=== PATIENT | male | born 1935 | race Caucasian/White ===

== ENCOUNTER 2017-03-30 10:35 | Emergency (ER) | payer OTHER ==
[~2017-03-30] VITALS: Ht 190.5 cm; Wt 80.0 kg
[~2017-03-30 10:35] MED LIST: ATOR40TA16 PO; LEVE500 PO; LORA-474 PO; MEMA28CA PO; METO25TA6 PO; PLAV75TA29 PO; RIVA13.3 T-DERMAL; SENN1TAB PO; SERT-132 PO; SINE25TA PO
[2017-03-30 10:37] VITALS: BP 155/79; PULSE 96; RESP 20; TEMP 98.1; O2SAT 97
--- NOTE | 2017-03-30 11:05 | PD ---
HPI Chief Complaint: Cardiac Complaint Time Seen by Provider: 10:54 Travel History International Travel<30 days: No Contact w/Intl Traveler<30days: No History of Present Illness HPI 81-year-old male complains of chest pain and nausea. Patient has history of dementia. Patient was reported to having chest pain this morning. EMS was called. Patient was transported to ED for evaluation. Patient denies any chest pain now. Patient denies any headache. Patient denies any coughing congestion. Patient denies any abdominal pain. Patient states that he had nausea earlier but not now. Patient denies any vomiting or diarrhea. Patient denies any dysuria or frequency. Patient denies any fever chills. Patient denies any back pain. Patient has history of dementia, Alzheimer's disease, hypertension, hyperlipidemia, hearing impaired, CAD, status post abdominal aortic aneurysm repair. PFSH Past Medical History Hx Anticoagulant Therapy: Yes AAA: Yes Alzheimer's Disease: Yes Arthritis: No Asthma: No Autoimmune Disease: No Blood Disorders: No Anxiety: No Depression: No Heart Rhythm Problems: Yes Cancer: No Cardiac Catheterization: Yes Cardiovascular Problems: Yes High Cholesterol: Yes Chemotherapy: No Chest Pain: No Congestive Heart Failure: No COPD: No Cerebrovascular Accident: No Coronary Artery Disease: Yes Dementia: Yes Diabetes: No Diminished Hearing: Yes (bilateral hearing aids ) Endocrine: No Gastrointestinal Disorders: Yes (cholecetomy) GERD: No Glaucoma: No Genitourinary: No Headaches: Yes Hepatitis: No Hiatal Hernia: No Hypertension: Yes Immune Disorder: No Implanted Vascular Access Dvce: Yes Kidney Stones: No Musculoskeletal: No Neurologic: Yes (dementia) Psychiatric: No Reproductive: No Respiratory: No Immunizations Current: Yes Migraines: No Myocardial Infarction: No Radiation Therapy: No Renal Failure: No Seizures: No Sickle Cell Disease: No Sleep Apnea: No Thyroid Disease: No Ulcer: No Past Surgical History Abdominal Aneurysm Repair: Yes (REPAIRED ) Abdominal Surgery: Yes AICD: No Appendectomy: No Arteriovenous Shunt: No Body Medical Devices: AAA GRAFT Cardiac Surgery: Yes (PACEMAKER INSERTION ) Cholecystectomy: No Coronary Artery Bypass Graft: Yes (2008 x 4 vessels) Ear Surgery: No Eye Surgery: No Genitourinary Surgery: No Gynecologic Surgery: No Insulin Pump: No Joint Replacement: No Neurologic Surgery: No Oral Surgery: No Pacemaker: Yes Thoracic Surgery: Yes (AAA STENT) Other Surgery: Yes (Open heart surgery) Social History Alcohol Use: No (RARELY) Tobacco Use: No (QUIT) Substance Use: No Allergies-Medications (Allergen,Severity, Reaction): Coded Allergies: No Known Allergies (Verified , 08/08/16) Reported Meds & Prescriptions Reported Meds & Active Scripts Active Ativan (Lorazepam) 1 Mg Tab 1 Mg PO DAILY PRN Keppra (Levetiracetam) 500 Mg Tab 500 Mg PO Q12HR Reported Metoprolol Succinate ER 24 HR (Metoprolol Succinate) 50 Mg Tab 50 Mg PO DAILY Sinemet (Carbidopa-Levodopa) 25-100 Mg Tab 1 Tab PO TID Atorvastatin (Atorvastatin Calcium) 40 Mg Tab 40 Mg PO DAILY Namenda Xr (Memantine) 28 Mg Caper 28 Mg PO DAILY Sertraline (Sertraline HCl) 50 Mg Tab 50 Mg PO DAILY Exelon Patch (Rivastigmine) 13.3 mg/24 hr Patch 1 Patch T-DERMAL DAILY Plavix (Clopidogrel Bisulfate) 75 Mg Tab 75 Mg PO DAILY Review of Systems General / Constitutional: No: Fever Eyes: No: Visual changes HENT: No: Headaches Cardiovascular: Positive: Chest Pain or Discomfort Respiratory: No: Shortness of Breath Gastrointestinal: Positive: Nausea, No: Abdominal Pain Genitourinary: No: Dysuria Musculoskeletal: No: Pain Skin: No Rash Neurologic: No: Weakness Psychiatric: No: Depression Endocrine: No: Polydipsia Hematologic/Lymphatic: No: Easy Bruising Physical Exam Narrative GENERAL: Well-nourished, well-developed patient. SKIN: Focused skin assessment warm/dry. HEAD: Normocephalic. EYES: No scleral icterus. No injection or drainage. NECK: Supple, trachea midline. No JVD or lymphadenopathy. CARDIOVASCULAR: Regular rate and rhythm without murmurs, gallops, or rubs. RESPIRATORY: Breath sounds equal bilaterally. No accessory muscle use. GASTROINTESTINAL: Abdomen soft, non-tender, nondistended. MUSCULOSKELETAL: No cyanosis, or edema. BACK: Nontender without obvious deformity. No CVA tenderness. Neurologic exam normal. Data Data Last Documented VS Vital Signs Date Time Temp Pulse Resp B/P Pulse Ox O2 Delivery O2 Flow Rate FiO2 03/30/17 12:43 79 18 145/69 96 03/30/17 10:41 Room Air 03/30/17 10:37 98.1 Orders Electrocardiogram (03/30/17 10:59) Complete Blood Count With Diff (03/30/17 10:59) Comprehensive Metabolic Panel (03/30/17 10:59) Creatine Kinase (Cpk) (03/30/17 10:59) Troponin I (03/30/17 10:59) B-Type Natriuretic Peptide (03/30/17 10:59) Prothrombin Time / Inr (Pt) (03/30/17 10:59) Act Partial Throm Time (Ptt) (03/30/17 10:59) Urinalysis - C+S If Indicated (03/30/17 10:59) Chest, Single Ap (03/30/17 10:59) Iv Access Insert/Monitor (03/30/17 10:59) Ecg Monitoring (03/30/17 10:59) Oximetry (03/30/17 10:59) Sodium Chlor 0.9% 1000 Ml Inj (Ns 1000 M (03/30/17 14:00) Ondansetron Inj (Zofran Inj) (03/30/17 14:00) Ns (Bolus) Inj (03/30/17 14:30) Labs Laboratory Tests Test 03/30/17 03/30/17 11:00 12:30 White Blood Count 7.1 TH/MM3 Red Blood Count 4.90 MIL/MM3 Hemoglobin 13.5 GM/DL Hematocrit 40.7 % Mean Corpuscular Volume 83.0 FL Mean Corpuscular Hemoglobin 27.6 PG Mean Corpuscular Hemoglobin 33.3 % Concent Red Cell Distribution Width 15.3 % Platelet Count 104 TH/MM3 Mean Platelet Volume 10.4 FL Neutrophils (%) (Auto) 46.2 % Lymphocytes (%) (Auto) 32.0 % Monocytes (%) (Auto) 21.1 % Eosinophils (%) (Auto) 0.4 % Basophils (%) (Auto) 0.3 % Neutrophils # (Auto) 3.3 TH/MM3 Lymphocytes # (Auto) 2.3 TH/MM3 Monocytes # (Auto) 1.5 TH/MM3 Eosinophils # (Auto) 0.0 TH/MM3 Basophils # (Auto) 0.0 TH/MM3 CBC Comment DIFF FINAL Differential Comment Prothrombin Time 12.6 SEC Prothromb Time International 1.1 RATIO Ratio Activated Partial 28.0 SEC Thromboplast Time Sodium Level 141 MEQ/L Potassium Level 3.8 MEQ/L Chloride Level 104 MEQ/L Carbon Dioxide Level 27.6 MEQ/L Anion Gap 9 MEQ/L Blood Urea Nitrogen 17 MG/DL Creatinine 0.95 MG/DL Estimat Glomerular Filtration 76 ML/MIN Rate Random Glucose 80 MG/DL Calcium Level 9.3 MG/DL Total Bilirubin 0.6 MG/DL Aspartate Amino Transf 16 U/L (AST/SGOT) Alanine Aminotransferase 14 U/L (ALT/SGPT) Alkaline Phosphatase 76 U/L Total Creatine Kinase 88 U/L Troponin I LESS THAN 0.02 NG/ML B-Type Natriuretic Peptide 52 PG/ML Total Protein 7.4 GM/DL Albumin 3.6 GM/DL Urine Color YELLOW Urine Turbidity HAZY Urine pH 7.5 Urine Specific [place] 1.025 Urine Protein TRACE mg/dL Urine Glucose (UA) NEG mg/dL Urine Ketones NEG mg/dL Urine Occult Blood NEG Urine Nitrite NEG Urine Bilirubin NEG Urine Urobilinogen 2.0 MG/DL Urine Leukocyte Esterase NEG Urine RBC 1 /hpf Urine WBC 2 /hpf Urine Calcium Oxalate Crystals RARE /hpf Urine Amorphous Sediment OCC Urine Mucus FEW /lpf Microscopic Urinalysis Comment CULT NOT INDICATED MDM Medical Decision Making Medical Screen Exam Complete: Yes Emergency Medical Condition: Yes Interpretation(s) 1422 PM. Last Impressions Chest X-Ray 03/30/17 1059 Signed Impressions: Service Date/Time: Thursday, March 30, 2017 11:21 - CONCLUSION: No acute disease. William Camara MD 1422 PM. CBC within normal limit. Platelet 104. CMP within normal limit. Cardiac enzymes are normal. UA is negative. Differential Diagnosis Differential diagnosis including musculoskeletal, angina, KS, PE, pneumothorax. Narrative Course 81-year-old male with chest pain and nausea earlier today. History of Alzheimer 's and dementia. Patient denies any chest pain or nausea now. Normal saline solution 500 cc IV bolus. Zofran 4 mg IV. Diagnosis Primary Impression: Atypical chest pain Additional Impression: Gastroenteritis Patient Instructions: General Instructions Additional Instructions: Zofran as needed. Follow-up with personal physician. Return if worse. Return immediately if increasing chest pain short as of breath, persistent vomiting. Med/Other Pt SpecificInfo: Prescription(s) given Scripts Ondansetron Odt (Zofran Odt)4 Mg Tab4 Mg SL Q6HR PRN (Nausea/Vomiting) #10 TAB Prov:Estuardo Quiroz MD 03/30/17 Disposition: 01 DISCHARGE HOME Condition: Stable Estuardo Quiroz MD March 30, 2017 11:05
[2017-03-30 11:15] LABS: AUTOMATED NEUTROPHIL # 3.3 TH/MM3 (1.8-7.7); BASOPHIL % 0.3 % (0.0-2.0); EOSINOPHIL % 0.4 % (0.0-4.0); HEMATOCRIT 40.7 % (39.0-51.0); HEMO FLAGS DIFF FINAL; LYMPHOCYTE # 2.3 TH/MM3 (1.0-4.8); MEAN CORPUSCULAR HEMOGLOBIN 27.6 PG (27.0-34.0); MEAN CORPUSCULAR HGB CONC 33.3 % (32.0-36.0); MONO % 21.1 % (0.0-8.0); NEUT % 46.2 % (16.0-70.0); PLATELET COUNT 104 TH/MM3 (150-450); RED CELL DISTRIBUTION WIDTH 15.3 % (11.6-17.2); WHITE BLOOD COUNT 7.1 TH/MM3 (4.0-11.0)
[2017-03-30 11:28] LABS: INTERNATIONAL NORMALIZED RATIO 1.1 RATIO; PROTHROMBIN TIME - PATIENT 12.6 SEC (9.8-11.6)
[2017-03-30] MEDS ORDERED: METO50TA11 PO (11:29)
[2017-03-30 11:31] LABS: ANION GAP 9 MEQ/L (5-15); AST (GOT) 16 U/L (15-37); BICARBONATE 27.6 MEQ/L (21.0-32.0); BLOOD UREA NITROGEN 17 MG/DL (7-18); CHLORIDE 104 MEQ/L (98-107); GLOMERULAR FILTRATION RATE 76 ML/MIN (>89); POTASSIUM 3.8 MEQ/L (3.5-5.1); SODIUM (NA) 141 MEQ/L (136-145)
[2017-03-30 11:36] LABS: ALKALINE PHOSPHATASE 76 U/L (45-117); ALT (GPT) 14 U/L (12-78); TOTAL BILIRUBIN ADULT 0.6 MG/DL (0.2-1.0)
[2017-03-30 11:37] LABS: CREATINE KINASE 88 U/L (39-308)
--- NOTE | 2017-03-30 12:17 | RADRPT ---
EXAM DATE/TIME: 03/30/2017 11:21 [facility] COMPARISON: CHEST SINGLE AP, October 14, 2016, 5:19. INDICATIONS : Chest pain. MEDICAL HISTORY : None. SURGICAL HISTORY : Pacemaker. ENCOUNTER: Initial ACUITY: 1 day PAIN SCORE: 0/10 LOCATION: Bilateral chest FINDINGS: A single view of the chest demonstrates the lungs to be symmetrically aerated without evidence of mas s, infiltrate or effusion. The cardiomediastinal contours are unremarkable. Osseous structures are intact. Sternotomy wires and left-sided pacing device is again noted. CONCLUSION: No acute disease. William Camara MD on March 30, 2017 at 12:15 Board Certified Radiologist. This report was verified electronically.
[2017-03-30 12:43] VITALS: BP 145/69; PULSE 79; RESP 18; O2SAT 96
[2017-03-30 13:01] LABS: BLOOD, URINE NEG (NEG); CALCIUM OXALATE CRYSTALS,URINE RARE /hpf; GLUCOSE,URINE NEG (NEG); KETONE, URINE NEG (NEG); MUCUS URINE FEW /lpf (OCC); NITRITE,URINE NEG (NEG); PH, URINE 7.5 (5.0-8.5); URINE COLOR YELLOW (YELLW/STRAW)
[2017-03-30 13:02] LABS: COMMENT (UR) CULT NOT INDICATED; CULTURE IF INDICATED CULT NOT INDICATED
[2017-03-30] MEDS ORDERED: SODIUM CHLOR 0.9% 1000 ML INJ 1,000 ML IV SCH (14:00)
[2017-03-30] MEDS ORDERED: ONDANSETRON HCL 4 MG/2 ML VIAL IV PUSH ONE (14:00)
[2017-03-30] MEDS ORDERED: ZOFR4TAB3 SL (14:30)
[2017-03-30] MEDS ORDERED: SODIUM CHLORID 0.9% 500 ML INJ 500 ML IV ONE (14:30)
--- NOTE | 2017-03-30 17:01 | EKG ---
Date Performed: 03/30/2017 Time Performed: 10:41:24 PTAGE: 81 years EKG: ELECTRONIC AV PACEMAKER LEFT BUNDLE BRANCH BLOCK Compared to previous tracing, the patient is now AV paced ABNORMAL ECG PREVIOUS TRACING : 10/11/2016 14.22 DOCTOR: Lidia Armenta Interpretating Date/Time 03/30/2017 17:00:46
== END 2017-03-30 16:19 | disposition home or self-care (01) ==
LOC: NEPE 10:35
DX: R07.89 Other chest pain (principal); K52.9 Noninfective gastroenteritis and colitis, unspecified; R94.31 Abnormal electrocardiogram [ECG] [EKG]; I10 Essential (primary) hypertension; E78.5 Hyperlipidemia, unspecified; G30.9 Alzheimer's disease, unspecified; F02.80 Dementia in other diseases classified elsewhere, unspecified severity, without behavioral disturbance, psychotic disturbance, mood disturbance, and anxiety; H91.93 Unspecified hearing loss, bilateral; Z79.01 Long term (current) use of anticoagulants; Z86.79 Personal history of other diseases of the circulatory system; Z87.19 Personal history of other diseases of the digestive system
CPT/HCPCS: 71010; 80053; 81001; 82550; 83880; 84484; 85025; 85610; 85730; 93005; 96374; 99285; J2405; J7040

== ENCOUNTER 2017-11-17 11:42 | Emergency (ER) | payer OTHER, MEDICAID ==
[~2017-11-17] VITALS: Ht 182.9 cm; Wt 80.0 kg
[~2017-11-17 11:42] MED LIST changes: +METO1TAB9 PO; -METO25TA6 PO; -SENN1TAB PO; +ZOFR4TAB3 SL
[2017-11-17 12:13] VITALS: BP 152/77; PULSE 60; RESP 14; TEMP 97.5; O2SAT 98
--- NOTE | 2017-11-17 12:44 | PD ---
HPI Chief Complaint: Altered Mental Status Time Seen by Provider: 12:38 Travel History International Travel<30 days: No Contact w/Intl Traveler<30days: No Traveled to known affect area: No History of Present Illness HPI 82-year-old male presents to the emergency department via EMS for evaluation of possible chest pain. Apparently, the patient complained of chest pain this morning. The patient as a past medical history of dementia, Alzheimer's disease , hypertension, hyperlipidemia, hearing impaired, CAD, status post abdominal aortic aneurysm repair. Apparently, the patient is more confused than normal. He denies any complaints to me. No chest pain. No headache. No fevers or chills. No shortness of breath. No abdominal pain. No nausea, vomiting, diarrhea. The patient is awake, but disoriented. He does follow commands. Patient is a poor historian. The patient is evaluated ambulatory no family is available at this time. Moderate severity. No exacerbating or alleviating factors. PFSH Past Medical History Hx Anticoagulant Therapy: Yes AAA: Yes Alzheimer's Disease: Yes Arthritis: No Asthma: No Autoimmune Disease: No Blood Disorders: No Anxiety: No Depression: No Heart Rhythm Problems: Yes Cancer: No Cardiac Catheterization: Yes Cardiovascular Problems: Yes High Cholesterol: Yes Chemotherapy: No Chest Pain: No Congestive Heart Failure: No COPD: No Cerebrovascular Accident: No Coronary Artery Disease: Yes Dementia: Yes Diabetes: No Diminished Hearing: Yes (bilateral hearing aids ) Endocrine: No Gastrointestinal Disorders: Yes (cholecetomy) GERD: No Glaucoma: No Genitourinary: No Headaches: Yes Hepatitis: No Hiatal Hernia: No Hypertension: Yes Immune Disorder: No Implanted Vascular Access Dvce: Yes Kidney Stones: No Musculoskeletal: No Neurologic: Yes (dementia) Psychiatric: No Reproductive: No Respiratory: No Immunizations Current: Yes Migraines: No Myocardial Infarction: No Radiation Therapy: No Renal Failure: No Seizures: No Sickle Cell Disease: No Sleep Apnea: No Thyroid Disease: No Ulcer: No Past Surgical History Abdominal Aneurysm Repair: Yes (REPAIRED ) Abdominal Surgery: Yes AICD: No Appendectomy: No Arteriovenous Shunt: No Body Medical Devices: AAA GRAFT Cardiac Surgery: Yes (PACEMAKER INSERTION ) Cholecystectomy: No Coronary Artery Bypass Graft: Yes (2008 x 4 vessels) Ear Surgery: No Eye Surgery: No Genitourinary Surgery: No Gynecologic Surgery: No Insulin Pump: No Joint Replacement: No Neurologic Surgery: No Oral Surgery: No Pacemaker: Yes Thoracic Surgery: Yes (AAA STENT) Other Surgery: Yes (Open heart surgery) Social History Alcohol Use: No (RARELY) Tobacco Use: No (QUIT) Substance Use: No Allergies-Medications (Allergen,Severity, Reaction): Coded Allergies: No Known Allergies (Verified Adverse Reaction, Unknown, 11/17/17) Reported Meds & Prescriptions Reported Meds & Active Scripts Active Zofran Odt (Ondansetron Odt) 4 Mg Tab 4 Mg SL Q6HR PRN Ativan (Lorazepam) 1 Mg Tab 1 Mg PO DAILY PRN Keppra (Levetiracetam) 500 Mg Tab 500 Mg PO Q12HR Reported Metoprolol Succinate ER 24 HR (Metoprolol Succinate) 50 Mg Tab 50 Mg PO DAILY Sinemet (Carbidopa-Levodopa) 25-100 Mg Tab 1 Tab PO TID Atorvastatin (Atorvastatin Calcium) 40 Mg Tab 40 Mg PO DAILY Namenda Xr (Memantine) 28 Mg Caper 28 Mg PO DAILY Sertraline (Sertraline HCl) 50 Mg Tab 50 Mg PO DAILY Exelon Patch (Rivastigmine) 13.3 mg/24 hr Patch 1 Patch T-DERMAL DAILY Plavix (Clopidogrel Bisulfate) 75 Mg Tab 75 Mg PO DAILY Review of Systems Except as stated in HPI: all other systems reviewed are Neg Physical Exam Exam Limitations: Poor Historian Narrative GENERAL: Well-nourished, well-developed elderly male patient, afebrile. Patient is alert and oriented to person only. SKIN: Focused skin assessment warm/dry. HEAD: Normocephalic. Atraumatic. EYES: No scleral icterus. No injection or drainage. NECK: Supple, trachea midline. No JVD or lymphadenopathy. CARDIOVASCULAR: Regular rate and rhythm without murmurs, gallops, or rubs. RESPIRATORY: Breath sounds equal bilaterally. No accessory muscle use. Lungs sounds clear to auscultation. GASTROINTESTINAL: Abdomen soft, non-tender, nondistended. MUSCULOSKELETAL: No cyanosis, or edema. Bilateral upper and lower extremity strength 4-5 out of 5. Patient follows commands. BACK: Nontender without obvious deformity. No CVA tenderness. Data Data Last Documented VS Vital Signs Date Time Temp Pulse Resp B/P (MAP) Pulse Ox O2 Delivery O2 Flow Rate FiO2 11/17/17 15:55 85 18 148/83 (104) 96 11/17/17 12:55 Room Air 11/17/17 12:13 97.5 Orders Orders Electrocardiogram (11/17/17 12:38) Complete Blood Count With Diff (11/17/17 12:38) Comprehensive Metabolic Panel (11/17/17 12:38) Creatine Kinase (Cpk) (11/17/17 12:38) Prothrombin Time / Inr (Pt) (11/17/17 12:38) Act Partial Throm Time (Ptt) (11/17/17 12:38) Troponin I (11/17/17 12:38) Urinalysis - C+S If Indicated (11/17/17 12:38) Chest, Single Ap (11/17/17 12:38) Ct Brain W/O Iv Contrast(Rout) (11/17/17 12:38) Blood Glucose (11/17/17 12:38) Ecg Monitoring (11/17/17 12:38) Iv Access Insert/Monitor (11/17/17 12:38) Oximetry (11/17/17 12:38) Sodium Chloride 0.9% Flush (Ns Flush) (11/17/17 12:45) Magnesium (Mg) (11/17/17 12:38) Cath For Specimen (11/17/17 12:38) Labs Laboratory Tests Test 11/17/17 13:10 11/17/17 15:55 White Blood Count 4.3 TH/MM3 Red Blood Count 4.72 MIL/MM3 Hemoglobin 13.8 GM/DL Hematocrit 39.5 % Mean Corpuscular Volume 83.7 FL Mean Corpuscular Hemoglobin 29.2 PG Mean Corpuscular Hemoglobin Concent 34.9 % Red Cell Distribution Width 14.9 % Platelet Count 136 TH/MM3 Mean Platelet Volume 10.1 FL Neutrophils (%) (Auto) 38.1 % Lymphocytes (%) (Auto) 35.4 % Monocytes (%) (Auto) 26.1 % Eosinophils (%) (Auto) 0.2 % Basophils (%) (Auto) 0.2 % Neutrophils # (Auto) 1.6 TH/MM3 Lymphocytes # (Auto) 1.5 TH/MM3 Monocytes # (Auto) 1.1 TH/MM3 Eosinophils # (Auto) 0.0 TH/MM3 Basophils # (Auto) 0.0 TH/MM3 CBC Comment DIFF FINAL Differential Comment Prothrombin Time 12.0 SEC Prothromb Time International Ratio 1.2 RATIO Activated Partial Thromboplast Time 27.8 SEC Blood Urea Nitrogen 11 MG/DL Creatinine 0.83 MG/DL Random Glucose 82 MG/DL Total Protein 7.3 GM/DL Albumin 3.7 GM/DL Calcium Level 9.0 MG/DL Magnesium Level 2.1 MG/DL Alkaline Phosphatase 55 U/L Aspartate Amino Transf (AST/SGOT) 15 U/L Alanine Aminotransferase (ALT/SGPT) 11 U/L Total Bilirubin 0.5 MG/DL Sodium Level 140 MEQ/L Potassium Level 4.2 MEQ/L Chloride Level 104 MEQ/L Carbon Dioxide Level 30.8 MEQ/L Anion Gap 5 MEQ/L Estimat Glomerular Filtration Rate 89 ML/MIN Total Creatine Kinase 53 U/L Troponin I LESS THAN 0.02 NG/ML Urine Color YELLOW Urine Turbidity CLEAR Urine pH 6.5 Urine Specific [place] 1.010 Urine Protein NEG mg/dL Urine Glucose (UA) NEG mg/dL Urine Ketones NEG mg/dL Urine Occult Blood NEG Urine Nitrite NEG Urine Bilirubin NEG Urine Urobilinogen LESS THAN 2.0 MG/DL Urine Leukocyte Esterase NEG Urine WBC 1 /hpf Microscopic Urinalysis Comment CULT NOT INDICATED MDM Medical Decision Making Medical Screen Exam Complete: Yes Emergency Medical Condition: Yes Medical Record Reviewed: Yes Interpretation(s) Last Impressions Head CT 11/17/17 1238 Signed Impressions: Service Date/Time: Friday, November 17, 2017 12:55 - CONCLUSION: 1. Stable senescent changes with mild prominence of the ventricles, slightly out of proportion to degree of atrophy. 2. No acute intracranial abnormality. Souleymane Sylvester MD Chest X-Ray 11/17/17 5808 Signed Impressions: Service Date/Time: Friday, November 17, 2017 12:44 - CONCLUSION: 1. No acute abnormality or significant interval change. Souleymane Sylvester MD Differential Diagnosis Atypical chest pain versus ACS versus electrolyte abnormality versus intracranial abnormality Narrative Course 82-year-old elderly male presents to the emergency department for evaluation of an episode of chest pain this morning and increased confusion. The patient does have history of dementia and Alzheimer's disease. He is a poor historian. EKG, CBC, CMP, CK, troponin, PTT, PT/INR, magnesium are ordered and pending. Chest x-ray and CT of the brain are ordered and pending. Workup is initiated in the ambulance hallway. EKG shows atrial paced rhythm, heart rate 60. CBC shows no acute abnormality. CMP shows no acute abnormality. CK is 53. Troponin is less than 0.02. Magnesium is 2.1. Coags acute abnormality. UA is negative for infection. CT of the brain shows stable senescent changes with mild prominence of the ventricles, slightly out of proportion to the degree of atrophy, no acute intracranial abnormality. Chest x-ray shows no acute abnormality or significant interval change. Patient is on [facility]. He has history of Alzheimer's dementia. I spoke with the patient's son who is agreeable to take the patient home and agrees with discharge. Patient will be discharged home to follow up with hospice. Diagnosis Primary Impression: Atypical chest pain Additional Impression: Dementia Qualified Codes: G30.9 - Alzheimer's disease, unspecified; F02.80 - Dementia in other diseases classified elsewhere without behavioral disturbance Patient Instructions: Chest Pain (ED), General Instructions Additional Instructions: Follow up with Hospice. Return to the emergency department for any acute worsening of symptoms. Med/Other Pt SpecificInfo: No Change to Meds Disposition: 01 DISCHARGE HOME Condition: Stable Sandy Whitley MARCELLUS Nov 17, 2017 12:44
[2017-11-17] MEDS ORDERED: SODIUM CHLORIDE 0.9% FLUSH 10 ML FLUSH IV FLUSH PRN (12:45)
[2017-11-17 12:55] VITALS: O2SAT 98
--- NOTE | 2017-11-17 13:46 | RADRPT ---
EXAM DATE/TIME: 11/17/2017 12:44 [facility] COMPARISON: CHEST SINGLE AP, March 30, 2017, 11:21. INDICATIONS : Short of breath with chest pains x2 days. MEDICAL HISTORY : Myocardial infarction. SURGICAL HISTORY : CABG. Pacemaker. ENCOUNTER: Initial ACUITY: 3 days PAIN SCORE: 7/10 LOCATION: Left chest FINDINGS: No new focal pleural or opacities. Ill-defined parenchymal opacity is stable in the left low er lung zone. Cardiomediastinal contours are are stable. Postsurgical features of median sternotomy w ith dual-lead pacemaker in place. Remainder of exam is unchanged. CONCLUSION: 1. No acute abnormality or significant interval change. Souleymane Sylvester MD on November 17, 2017 at 13:40 Board Certified Radiologist. This report was verified electronically.
--- NOTE | 2017-11-17 13:52 | RADRPT ---
EXAM DATE/TIME: 11/17/2017 12:55 [facility] COMPARISON: CT BRAIN W/O CONTRAST, October 11, 2016, 12:56. INDICATIONS : Increasing altered mental status RADIATION DOSE: 37.12 CTDIvol (mGy) MEDICAL HISTORY : Alzheimer's Cardiovascular disease Hypertension. SURGICAL HISTORY : Pacemaker. ENCOUNTER: Initial ACUITY: 1 day PAIN SCALE: 3/10 LOCATION: cranial TECHNIQUE: Multiple contiguous axial images were obtained of the head. Using automated exposure control and adj ustment of the mA and/or kV according to patient size, radiation dose was kept as low as reasonably a chievable to obtain optimal diagnostic quality images. DICOM format image data is available electro nically for review and comparison. FINDINGS: CEREBRUM: Moderate diffuse stable volume loss. Stable prominence of the ventricles, slightly out of proportion to degree of atrophy. No evidence of midline shift, mass lesion, hemorrhage or acute infarction. No extra-axial fluid collections are seen. POSTERIOR FOSSA: The cerebellum and brainstem are intact. The 4th ventricle is midline. The cerebellopontine angle i s unremarkable. EXTRACRANIAL: The visualized portion of the orbits is intact. SKULL: The calvaria is intact. No evidence of skull fracture. CONCLUSION: 1. Stable senescent changes with mild prominence of the ventricles, slightly out of proportion to deg ree of atrophy. 2. No acute intracranial abnormality. Souleymane Sylvester MD on November 17, 2017 at 13:46 Board Certified Radiologist. This report was verified electronically.
[2017-11-17 14:09] LABS: AUTOMATED NEUTROPHIL # 1.6 TH/MM3 (1.8-7.7); BASOPHIL % 0.2 % (0.0-2.0); EOSINOPHIL % 0.2 % (0.0-4.0); HEMATOCRIT 39.5 % (39.0-51.0); HEMOGLOBIN 13.8 GM/DL (13.0-17.0); LYMPH % 35.4 % (9.0-44.0); LYMPHOCYTE # 1.5 TH/MM3 (1.0-4.8); MEAN CELL VOLUME 83.7 FL (80.0-100.0); MEAN CORPUSCULAR HEMOGLOBIN 29.2 PG (27.0-34.0); MEAN CORPUSCULAR HGB CONC 34.9 % (32.0-36.0); MEAN PLATELET VOLUME 10.1 FL (7.0-11.0); MONO % 26.1 % (0.0-8.0); MONOCYTE # 1.1 TH/MM3 (0-0.9); NEUT % 38.1 % (16.0-70.0); PLATELET COUNT 136 TH/MM3 (150-450); RED BLOOD COUNT 4.72 MIL/MM3 (4.50-5.90); RED CELL DISTRIBUTION WIDTH 14.9 % (11.6-17.2); WHITE BLOOD COUNT 4.3 TH/MM3 (4.0-11.0)
[2017-11-17 14:24] LABS: INTERNATIONAL NORMALIZED RATIO 1.2 RATIO
[2017-11-17 14:32] LABS: ALBUMIN 3.7 GM/DL (3.4-5.0); AST (GOT) 15 U/L (15-37); BICARBONATE 30.8 MEQ/L (21.0-32.0); BLOOD UREA NITROGEN 11 MG/DL (7-18); CHLORIDE 104 MEQ/L (98-107); CREATININE 0.83 MG/DL (0.60-1.30); GLOMERULAR FILTRATION RATE 89 ML/MIN (>89); GLUCOSE,RANDOM 82 MG/DL (74-106); MAGNESIUM 2.1 MG/DL (1.5-2.5); SODIUM (NA) 140 MEQ/L (136-145)
[2017-11-17 14:37] LABS: ALKALINE PHOSPHATASE 55 U/L (45-117); ALT (GPT) 11 U/L (12-78); TOTAL BILIRUBIN ADULT 0.5 MG/DL (0.2-1.0); TOTAL PROTEIN 7.3 GM/DL (6.4-8.2); TROPONIN I LESS THAN 0.02 NG/ML (0.02-0.05)
[2017-11-17 15:55] VITALS: BP 148/83; PULSE 85; RESP 18; O2SAT 96
[2017-11-17 16:22] LABS: BILIRUBIN, URINE NEG (NEG); BLOOD, URINE NEG (NEG); GLUCOSE,URINE NEG (NEG); KETONE, URINE NEG (NEG); NITRITE,URINE NEG (NEG); PH, URINE 6.5 (5.0-8.5); URINE COLOR YELLOW (YELLW/STRAW); URINE LEUKOCYTE ESTERASE NEG (NEG)
--- NOTE | 2017-11-18 15:45 | EKG ---
Date Performed: 11/17/2017 Time Performed: 13:57:38 PTAGE: 82 years EKG: ELECTRONIC ATRIAL PACEMAKER LEFT BUNDLE BRANCH BLOCK ABNORMAL ECG PREVIOUS TRACING : 03/30/2017 10.41 Compared to prior tracing no significant change DOCTOR: Mu Sherwood Interpretating Date/Time 11/18/2017 15:44:44
== END 2017-11-17 17:14 | disposition home or self-care (01) ==
LOC: NEPE 11:42
DX: R07.89 Other chest pain (principal); I44.7 Left bundle-branch block, unspecified; R94.31 Abnormal electrocardiogram [ECG] [EKG]; G30.9 Alzheimer's disease, unspecified; F02.80 Dementia in other diseases classified elsewhere, unspecified severity, without behavioral disturbance, psychotic disturbance, mood disturbance, and anxiety; I10 Essential (primary) hypertension; E78.5 Hyperlipidemia, unspecified; I25.10 Atherosclerotic heart disease of native coronary artery without angina pectoris; E78.00 Pure hypercholesterolemia, unspecified
CPT/HCPCS: 70450; 71045; 80053; 81001; 82550; 83735; 84484; 85025; 85610; 85730; 93005